=== PATIENT | female | born 1950 | race Hispanic/Latino ===

== ENCOUNTER 2020-11-24 08:11 | Inpatient (IN) | payer OTHER ==
--- NOTE | 2020-11-24 08:45 | RAD REPORT ---
EXAM DESCRIPTION: CT - Head Brain Wo Cont - 11/24/2020 8:36 am CLINICAL HISTORY: unresponsive Headache, drowsiness COMPARISON: No comparisons TECHNIQUE: All CT scans are performed using dose optimization technique as appropriate and may inclu de automated exposure control or mA/KV adjustment according to patient size. FINDINGS: No intracranial hemorrhage, hydrocephalus or extra-axial fluid collection.No areas of brai n edema or evidence of midline shift. The paranasal sinuses and mastoids are clear. The calvarium is intact. IMPRESSION: No acute intracranial abnormality.
[2020-11-24 08:46] LABS: Urine Blood Negative (Negative); Urine Glucose Negative (Negative); Urine Protein Negative (Negative); Urine pH 7.5 (5.0-7.0)
[2020-11-24 08:48] LABS: Protime INR 1.13
[2020-11-24 09:02] LABS: ALT/SGPT 37 U/L (12-78); AST/SGOT 41 U/L (15-37); Albumin 2.4 g/dL (3.4-5.0); Alkaline Phosphatase 231 U/L (45-117); BUN Blood Urea Nitrogen 16 mg/dL (7-18); Bicarbonate 22 mmol/L (21-32); Bilirubin Direct 0.7 mg/dL (0-0.2); Bilirubin Total 1.6 mg/dL (0.2-1.0); Glucose Level 159 mg/dL (74-106); Magnesium 1.9 mg/dL (1.8-2.4); NT PRO-BNP 581 pg/mL (<125); Potassium 5.1 mmol/L (3.5-5.1); Protein, Total 5.5 g/dL (6.4-8.2); Sodium Level 143 mmol/L (136-145); Troponin (Emerg Dept Use Only) < 0.02 ng/mL (0.0-0.045)
[2020-11-24 09:15] LABS: Arterial Blood Carboxyhemoglob 1.5 % (0-1.5); Blood Gas Oxyhemoglobin 98.1 % (94-97)
[2020-11-24] MEDS ORDERED: NA CHLORIDE 0.9% 1,000 ML ONE (09:15)
[2020-11-24 09:24] LABS: Absolute Lymphocytes (CBC) 0.7 K/uL (0.7-4.9); Basophils % 0.8 % (0-1.3); Hematocrit 28.3 % (36.0-45.0); Lymphocytes % 18.6 % (15.3-44.8); RBC Red Blood Cell Count 2.69 M/uL (3.86-4.86)
[2020-11-24 09:59] LABS: Blood Morphology Comment NOT SEEN (NOT SEEN); Platelet Estimate DECR; White Blood Cell Scan OK (OK)
[2020-11-24] MEDS ORDERED: CEFTRIAXONE/SWI 1gm 1 GM/10 ML SYR ONE (10:12)
[2020-11-24] MEDS ORDERED: LACTULOSE 20 GM/30 ML UCUP ONE ×2 (10:13→16:30)
[2020-11-24 10:15] LABS: Barbiturates NEGATIVE (NEGATIVE); Benzodiazepines NEGATIVE (NEGATIVE); Cocaine NEGATIVE (NEGATIVE); METHAMPHETAM NEGATIVE (NEGATIVE); Methadone NEGATIVE (NEGATIVE); Opiates NEGATIVE (NEGATIVE); Phencyclidine NEGATIVE (NEGATIVE); THC Cannibis NEGATIVE (NEGATIVE)
--- NOTE | 2020-11-24 10:20 | ER ---
Nurse's Notes [facility] Name: Opal Strong Age: 70 yrs Sex: Female : 1950 Arrival Date: 11/24/2020 Time: 08:13 Bed 6 Private MD: Diagnosis: Encephalopathy, unspecified-hepatic Presentation: 11/24 08:14 Chief complaint: EMS states: Found unresponsive by family, last known normal was hb yesterday afternoon. Hx of cirrhosis, HTN, CHF. 18g LAC, 100% on NRB. Coronavirus screen: At this time, the client does not indicate any symptoms associated with coronavirus-19. Ebola Screen: No symptoms or risks identified at this time. Initial Sepsis Screen: Does the patient meet any 2 criteria? Altered Mental Status. No. Patient's initial sepsis screen is negative. Does the patient have a suspected source of infection? No. Patient's initial sepsis screen is negative. Risk Assessment: Do you want to hurt yourself or someone else? Patient reports no desire to harm self or others. Onset of symptoms was November 24, 2020. 08:14 Acuity: AMBER 1 08:14 Method Of Arrival: EMS: [facility] Triage Assessment: 08:15 General: Appears distressed, Behavior is unresponsive. Pain: Unable to use pain scale. hb FLACC scale score is 0 out of 10. EENT: No signs and/or symptoms were reported regarding the EENT system. Neuro: Level of Consciousness is unresponsive, Oriented to none. Cardiovascular: Patient's skin is warm and dry. Rhythm is regular. Respiratory: Respiratory effort is labored, Respiratory pattern is hypoventilation snoring. GI: Abdomen is obese. : No deficits noted. No signs and/or symptoms were reported regarding the genitourinary system. Derm: Skin is pink, warm \\T\\ dry. Musculoskeletal: No signs and/or symptoms reported regarding the musculoskeletal system. Historical: - Allergies: 08:17 No Known Allergies; hb - PMHx: 08:17 Hypertension; CHF; Diabetes - NIDDM; Cirrhosis; Blind - Right Eye; hb - PSHx: 08:17 Hernia repair; Tumor - abdomen; hb - Immunization history:: Adult Immunizations up to date. - Social history:: Smoking status: Patient denies any tobacco usage or history of. . - Family history:: not pertinent. Screenin:51 Abuse screen: Denies threats or abuse. Denies injuries from another. Nutritional hb screening: No deficits noted. Tuberculosis screening: No symptoms or risk factors identified. Fall Risk Total Chery Fall Scale indicates High Risk Score (45 or more points). Fall prevention measures have been instituted. Side Rails Up X 2 Frequent Obs/Assessments Occuring As available patient and family educated on Fall Prevention Program and Strategies. Assessment: 08:15 Reassessment: See triage assessment. hb 08:32 Reassessment: Pt to CT on CPAP with Colleen Johnson, and Rose TOPETE. hb 08:45 Reassessment: Returned from CT. Radiology at bedside for PCR. hb 09:45 Reassessment: Vital signs stable, on CPAP, responsive to pain only, Dr. Theresa goldman. hb Daughter at bedside. 10:15 Reassessment: Lactulose administered ID via enema bag. Pt in left side lying position. hb Daughter at bedside. 10:45 Reassessment: Pt on CPAP, vital signs stable. Daughter remains at bedside. Admission hb ordered, awaiting room assignment at this time. Reassessment:. 11:45 Reassessment: Patient appears in no apparent distress at this time. No changes from hb previously documented assessment. Patient and/or family updated on plan of care and expected duration. Pain level reassessed. 12:30 Reassessment: Patient appears in no apparent distress at this time. No changes from hb previously documented assessment. Patient and/or family updated on plan of care and expected duration. Pain level reassessed. 12:41 Reassessment: Pt returned from cT. Reassessment: Pt to CT. hb Vital Signs: 08:14 Pulse 59; Resp 10; Temp 98; Pulse Ox 100% on R/A; hb 08:58 BP 113 / 70; Pulse 60; Resp 10; Pulse Ox 100% on CPAP; hb 09:45 BP 112 / 60; Pulse 68; Resp 10; Pulse Ox 99% on CPAP; hb 10:45 BP 110 / 49; Pulse 69; Resp 9; Pulse Ox 100% on CPAP; hb 12:22 BP 125 / 60; Pulse 65; Resp 9; Pulse Ox 100% on CPAP; hb ED Course: 08:13 Patient arrived in ED. hb 08:14 Patient has correct armband on for positive identification. Side rails up X2. Cardiac hb monitor on. Pulse ox on. NIBP on. 08:15 Triage completed. hb 08:17 Arm band placed on. hb 08:24 Kip Cardenas MD is Attending Physician. ma2 08:28 Initial lab(s) drawn, by me, sent to lab. First set of blood cultures drawn Urine mh5 collected: Bauer catheter specimen, clear, EKG done, by ED staff, reviewed by Kip Cardenas MD. Maintain EMS IV. Dressing intact. Site clean \\T\\ dry. 08:36 CT Head Brain wo Cont In Process Unspecified. EDMS 08:46 Rose Lai, RN is Primary Nurse. hb 08:48 Urine Drug Screen Sent. mh5 08:48 Blood Culture Adult (2) Sent. mh5 08:48 UDS Sent. mh5 08:49 NT PRO-BNP Sent. mh5 08:49 Alcohol Level Sent. mh5 08:49 Liver (Hepatic) Function Sent. mh5 08:49 Magnesium Sent. mh5 08:49 Basic Metabolic Panel Sent. mh5 08:49 CBC with Automated Diff Sent. mh5 08:49 AMMONIA Sent. mh5 08:49 Basic Metabolic Panel Sent. mh5 08:50 CBC with Diff Sent. mh5 08:50 LFT's Sent. mh5 08:50 Magnesium Sent. mh5 08:50 NT PRO-BNP Sent. mh5 08:50 PT-INR Sent. mh5 08:50 Troponin (emerg Dept Use Only) Sent. mh5 08:53 Warm blanket given. mh5 09:00 Lab(s) recollected, Second set of blood cultures drawn by me. 5 10:20 Marquis Estrada MD is Hospitalizing Provider. ma2 11:00 COVID-19 : Document "Date of Symptom Onset" if Symptomatic. Sent. hb 11:[address] Veda Santana patient's GI called at [phone] message eb left with answering service. 11:31 Dr. Castellanos called back for Dr. Santana / He is the director [facility]. He advised that eb we call the [facility] and ask to be connected to Dr. Cervantes who is the central station operator director [employer] [facility]. 11:39 initiated a transfer with Karine from the [facility]. eb 11:40 CORONAVIRUS Sent. [facility] 11:53 Karine from the [facility] called to decline the patient in eb transfer/ None of their facilities have any ICU/ IMU beds at this time. 13:01 Abdomen In Process Unspecified. EDMS 14:30 No provider procedures requiring assistance completed. Patient admitted, IV remains in hb place. Administered Medications: 09:02 Drug: NS 0.9% 1000 ml Route: IV; Rate: 1 bolus; Site: left antecubital; hb 09:55 Follow up: Response: No adverse reaction; IV Status: Completed infusion; IV Intake: hb 1000ml 10:11 Drug: Lactulose 30 grams Volume: 45 ml; Route: PO; hb 11:00 Follow up: Response: No adverse reaction hb 10:11 Drug: Rocephin (cefTRIAXone) 1 grams Route: IV; Rate: calculated rate; Site: left hb antecubital; 10:30 Follow up: Response: No adverse reaction; IV Status: Completed infusion; IV Intake: 10mlhb Intake: 09:55 IV: 1000ml; Total: 1000ml. hb 10:30 IV: 10ml; Total: 1010ml. hb Outcome: 10:20 Decision to Hospitalize by Provider. ma2 14:30 Admitted to ER Hold. Please see [facility] for further documentation. hb 14:30 critical 14:30 Instructed on the need for admit. 11/25 10:02 Patient left the ED. sv Signatures: Dispatcher [employer] Sarika Serra RN RN Rose Lai RN RN Antonette Dimas [facility] Kip Cardenas MD MD [facility] Katharine Benton Corrections: (The following items were deleted from the chart) 11/24 10:50 09:45 Reassessment: Vital signs stale, on CPAP. Daughter at bedside. hb hb
--- NOTE | 2020-11-24 10:20 | EDPHYS ---
Physician Documentation [facility] Name: Opal Strong Age: 70 yrs Sex: Female : 1950 Arrival Date: 11/24/2020 Time: 08:13 Bed 6 Private MD: ED Physician Kip Cardenas HPI: 11/24 10:15 This 70 yrs old Female presents to ER via EMS with complaints of Unresponsive. ma2 10:15 This 70 yrs old Female presents to ER via EMS with complaints of altered ma2 mental state . 10:15 The patient presents with confusion, decreased mental status, decreased responsiveness. ma2 Onset: The symptoms/episode began/occurred gradually, 1 day(s) ago. Associated signs and symptoms: Pertinent negatives: ataxia, chest pain, combativeness, confusion. The patient has experienced similar episodes in the past. Historical: - Allergies: 08:17 No Known Allergies; hb - PMHx: 08:17 Hypertension; CHF; Diabetes - NIDDM; Cirrhosis; Blind - Right Eye; hb - PSHx: 08:17 Hernia repair; Tumor - abdomen; hb - Immunization history:: Adult Immunizations up to date. - Social history:: Smoking status: Patient denies any tobacco usage or history of. . - Family history:: not pertinent. ROS: 10:15 Unable to obtain ROS due to altered mental status. ma2 10:20 Eyes: Negative for injury, pain, redness, and discharge. ma2 Exam: 10:15 Head/Face: Normocephalic, atraumatic. Eyes: Pupils equal round and reactive to light, ma2 extra-ocular motions intact. Lids and lashes normal. Conjunctiva and sclera are non-icteric and not injected. Cornea within normal limits. Periorbital areas with no swelling, redness, or edema. ENT: Nares patent. No nasal discharge, no septal abnormalities noted. Tympanic membranes are normal and external auditory canals are clear. Oropharynx with no redness, swelling, or masses, exudates, or evidence of obstruction, uvula midline. Mucous membranes moist. Neck: Trachea midline, no thyromegaly or masses palpated, and no cervical lymphadenopathy. Supple, full range of motion without nuchal rigidity, or vertebral point tenderness. No Meningismus. Chest/axilla: Normal chest wall appearance and motion. Nontender with no deformity. No lesions are appreciated. Cardiovascular: Regular rate and rhythm with a normal S1 and S2. No gallops, murmurs, or rubs. Normal PMI, no JVD. No pulse deficits. Respiratory: Lungs have equal breath sounds bilaterally, clear to auscultation and percussion. No rales, rhonchi or wheezes noted. No increased work of breathing, no retractions or nasal flaring. Abdomen/GI: Soft, non-tender, with normal bowel sounds. No distension or tympany. No guarding or rebound. No evidence of tenderness throughout. Skin: Warm, dry with normal turgor. Normal color with no rashes, no lesions, and no evidence of cellulitis. MS/ Extremity: Pulses equal, no cyanosis. Neurovascular intact. Full, normal range of motion. Neuro: samnolent only arosable to verbal stimuli, GCS 11,Cranial nerves II-XII grossly intact. moving all extremities. Vital Signs: 08:14 Pulse 59; Resp 10; Temp 98; Pulse Ox 100% on R/A; hb 08:58 BP 113 / 70; Pulse 60; Resp 10; Pulse Ox 100% on CPAP; hb 09:45 BP 112 / 60; Pulse 68; Resp 10; Pulse Ox 99% on CPAP; hb 10:45 BP 110 / 49; Pulse 69; Resp 9; Pulse Ox 100% on CPAP; hb 12:22 BP 125 / 60; Pulse 65; Resp 9; Pulse Ox 100% on CPAP; hb MDM: 10:15 Patient medically screened. ma2 10:15 Differential Diagnosis: alcohol intoxication, sepsis, UTI, volume depletion. Data ma2 reviewed: vital signs, nurses notes. Counseling: I had a detailed discussion with the patient and/or guardian regarding: the historical points, exam findings, and any diagnostic results supporting the discharge/admit diagnosis, the presence of at least one elevated blood pressure reading (>120/80) during this emergency department visit, the need for outpatient follow up. Response to treatment: the patient's symptoms have markedly improved after treatment. 11/24 08:21 Order name: Basic Metabolic Panel eb 11/24 08:21 Order name: CBC with Diff eb 11/24 08:21 Order name: LFT's eb 11/24 08:21 Order name: Magnesium eb 11/24 08:21 Order name: NT PRO-BNP eb 11/24 08:21 Order name: PT-INR; Complete Time: 09:02 eb 11/24 08:21 Order name: Troponin (emerg Dept Use Only); Complete Time: 09:27 eb 11/24 08:21 Order name: AMMONIA; Complete Time: 09:02 eb 11/24 08:21 Order name: Basic Metabolic Panel; Complete Time: 09:27 EDMS 11/24 08:21 Order name: CBC with Automated Diff; Complete Time: 10:08 EDMS 11/24 08:21 Order name: Liver (Hepatic) Function; Complete Time: 09:27 EDMS 11/24 08:21 Order name: Magnesium; Complete Time: 09:27 EDMS 11/24 08:21 Order name: NT PRO-BNP; Complete Time: 09:27 EDMS 11/24 08:25 Order name: UDS nh2 11/24 08:25 Order name: Alcohol Level; Complete Time: 09:02 nh2 11/24 08:25 Order name: Blood Culture Adult (2) [facility] 11/24 08:25 Order name: Urine Drug Screen EDMS 11/24 08:46 Order name: Urine Dipstick-Ancillary EDMS 11/24 09:15 Order name: ABG Arterial Blood Gas; Complete Time: 09:27 EDMS 11/24 09:59 Order name: CBC Smear Scan; Complete Time: 10:08 EDMS 11/24 10:49 Order name: COVID-19 : Document "Date of Symptom Onset" if Symptomatic. 11/24 11:31 Order name: CORONAVIRUS EDMS 11/24 12:25 Order name: SARS-COV-2 RT PCR EDMS 11/24 16:27 Order name: Glucose, Ancillary Testing EDMS 11/24 21:53 Order name: Glucose, Ancillary Testing EDMS 11/25 06:26 Order name: Ammonia EDMS 11/25 06:28 Order name: Protime (+INR) EDMS 11/25 06:35 Order name: Comprehensive Metabolic Panel EDMS 11/25 06:35 Order name: Magnesium EDMS 11/25 06:42 Order name: CBC with Automated Diff EDMS 11/24 08:21 Order name: XRAY Chest (1 view) 11/24 08:21 Order name: EKG; Complete Time: 08:22 11/24 08:21 Order name: Cardiac monitoring; Complete Time: 08:50 eb 11/24 08:21 Order name: EKG - Nurse/Tech; Complete Time: 08:50 eb 11/24 08:21 Order name: IV Saline Lock; Complete Time: 08:50 eb 11/24 08:21 Order name: Labs collected and sent; Complete Time: 08:51 eb 11/24 08:21 Order name: O2 Per Protocol; Complete Time: 08:51 eb 11/24 08:21 Order name: O2 Sat Monitoring; Complete Time: 08:54 eb 11/24 08:21 Order name: CT Head Brain wo Cont; Complete Time: 09:02 eb 11/24 08:25 Order name: Urine Dipstick-Ancillary (obtain specimen); Complete Time: 08:46 ma2 11/24 08:53 Order name: Labs - recollect needed: recollect the purple top/ hemolyzed; Complete eb Time: 09:02 11/24 10:54 Order name: RAD [facility] 11/24 12:08 Order name: Abdomen EDTN 11/25 08:04 Order name: Glucose, Ancillary Testing EDTN 11/25 08:38 Order name: RAD [facility] 11/25 08:39 Order name: EDTN Administered Medications: 09:02 Drug: NS 0.9% 1000 ml Route: IV; Rate: 1 bolus; Site: left antecubital; hb 09:55 Follow up: Response: No adverse reaction; IV Status: Completed infusion; IV Intake: hb 1000ml 10:11 Drug: Lactulose 30 grams Volume: 45 ml; Route: PO; hb 11:00 Follow up: Response: No adverse reaction hb 10:11 Drug: Rocephin (cefTRIAXone) 1 grams Route: IV; Rate: calculated rate; Site: left hb antecubital; 10:30 Follow up: Response: No adverse reaction; IV Status: Completed infusion; IV Intake: 10mlhb Disposition: 11/24/20 10:20 Hospitalization ordered by Marquis Estrada for Inpatient Admission. Preliminary diagnosis is Encephalopathy, unspecified - hepatic . - Bed requested for Telemetry/MedSurg (Inpatient). - Status is Inpatient Admission. sv - Condition is Stable. - Problem is new. - Symptoms are unchanged. Signatures: Dispatcher [facility] Sarika Robertson RN RN Rose Lai RN RN Kip Cardenas MD MD nh2 Katharine Benton Corrections: (The following items were deleted from the chart) 14:47 10:20 Hospitalization Ordered by Marquis Estrada MD for Inpatient Admission. Preliminary eb diagnosis is Encephalopathy, unspecified - hepatic . Bed requested for Telemetry/MedSurg (Inpatient). Status is Inpatient Admission. Condition is Stable. Problem is new. Symptoms are unchanged. [facility] 11/25 08:09 11/24 14:47 11/24/2020 10:20 Hospitalization Ordered by Marquis Estrada MD for Inpatient sv Admission. Preliminary diagnosis is Encephalopathy, unspecified - hepatic . Bed requested for [facility] ER HOLD. Status is Inpatient Admission. Condition is Stable. Problem is new. Symptoms are unchanged. eb 11/25 10:02 08:09 11/24/2020 10:20 Hospitalization Ordered by Marquis Estrada MD for Inpatient sv Admission. Preliminary diagnosis is Encephalopathy, unspecified - hepatic . Bed requested for Telemetry/MedSurg (Inpatient). Status is Inpatient Admission. Condition is Stable. Problem is new. Symptoms are unchanged. sv
--- NOTE | 2020-11-24 10:54 | RAD REPORT ---
EXAM DESCRIPTION: RAD - Chest Single View - 11/24/2020 10:12 am CLINICAL HISTORY: unresponssive Chest pain. COMPARISON: No comparisons FINDINGS: Portable technique limits examination quality. Mild interstitial pulmonary edema seen. The heart is moderately enlarged in size. Degenerative change s present both shoulders. IMPRESSION: Mild CHF.
--- NOTE | 2020-11-24 13:14 | RAD REPORT ---
EXAM DESCRIPTION: CT - Abdomen Pelvis Wo Contrast - 11/24/2020 1:01 pm CLINICAL HISTORY: Abdominal pain. r/o obstruction, cirrhosis, h/o TIPS, AMS COMPARISON: No comparisons TECHNIQUE: CT imaging of the abdomen and pelvis was performed without contrast. Solid organ, bowel a nd vascular assessment is limited due to lack of IV and oral contrast. All CT scans are performed using dose optimization technique as appropriate and may include automated exposure control or mA/KV adjustment according to patient size. FINDINGS: The lower lung shafer are clear. The liver is small in size and nodular in contour compatible with liver cirrhosis. A TIPS shunt is in place.The spleen is mildly prominent. A gallstone is present in the gallbladder. Pancreas, adrenal g lands and kidneys are within normal limits. No bowel obstruction, free air, free fluid or abscess. Prominent stool is present throughout the colo n. The appendix is not identified as a discrete structure, however, no secondary findings of appendic itis are identified. Mild lower lumbar spondylosis. IMPRESSION: Liver cirrhosis pattern is seen. No bowel obstruction or ascites. Cholelithiasis. A limited non-contrast examination was performed as detailed.
--- NOTE | 2020-11-24 13:23 | P.HP ---
Certification for Inpatient Patient admitted to: Inpatient With expected LOS: >2 Midnights Practitioner: I am a practitioner with admitting privileges, knowledge of patient current condition, hospital course, and medical plan of care. Services: Services provided to patient in accordance with Admission requirements found in Title 42 Section 412.3 of the Code of Federal Regulations Patient History Date of Service: 11/24/20 Reason for admission: Acute hepatic encephalopathy History of Present Illness: 70yo F, PMH: cirrhosis (CHRISTENSEN), NIDDM2, CHF (unknown type), HTN, Congenital R eye blindness Brought to ED due to lethargy / minimal responsiveness. HPI obtained from the daughter at bedside. She states the patient was complaining of taking her electrolytes as prescribed due to feeling like it is stuck in her throat and not liking the taste. Approximately 2 weeks ago, her forex trader to decrease the dose from 4 times a day to twice a day. After that, the patient seemed to be more tired and more confused, but then improved. Daughter noticed yesterday she began to feel more tired and not as alert. Patient did not have her typical night bowel movement, and this morning she was very difficult to arouse. In the ED, patient appeared obtunded, summoned blinking her eyes, found to have an elevated ammonia level of 280, vitals were rather stable and within normal limits. Labwork notable for anemia of 9.6, thrombocytopenia of 78, mild hyperchloremia, creatinine of 1.21, mild hyperbilirubinemia, BNP: 581. Negative CT head, mild CHF pattern on CXR. In the ED COVID for admission. Upon my arrival, the patient's daughter requested transfer to [facility] with the patient's forex trader has privileges, and her food service sales representatives. Unfortunately [facility] was at capacity. Allergies No Known Allergies Allergy (Unverified 11/24/20 14:24) - Past Medical/Surgical History Diabetic: Yes -: luz-ykeoeky-zbxdfkohl diabetes mellitus type 2 -: CHRISTENSEN cirrhosis -: CHF, unknown type -: Hypertension -: Congenital right eye blindness -: Hysterectomy -: Hernia repair - Family History Family History: Reviewed- Non-Contributory (daughter unable to provider further history) - Social History Smoking Status: Never smoker Alcohol use: No Place of Residence: Home Review of Systems is unable to be obtained Physical Examination - Studies Laboratory Data (last 24 hrs) 11/24/20 09:00: WBC 4.00 L, Hgb 9.6 L, Hct 28.3 L, Plt Count 78 L 11/24/20 08:29: PT 13.0 H, INR 1.13 11/24/20 08:29: Sodium 143, Potassium 5.1, BUN 16, Creatinine 1.21, Glucose 159 H, Magnesium 1.9, Total Bilirubin 1.6 H, AST 41 H, ALT 37, Alkaline Phosphatase 231 H Assessment and Plan - Advance Directives Does patient have a Living Will: No Does patient have a Durable POA for Healthcare: No Physician Review Additional Text: Physical Exam Gen: unresponsive, on CPAP HEENT: Normal conjunctiva, sclerae anicteric, L PERRL CV: RRR, no murmur Pulm: diminished at bases bilaterally, on CPAP Abd: distended, +BS Ext: trace b/l edema, no rash/lesions Skiin: varicose veins on chest Neuro: unresponsive Problem List Acute Encephalopathy suspect hepatic encephalopathy Cirrhosis, CHRISTENSEN; s/p TIPS procedure Hyperammonemia DM 2, [id number]-[id number] Hypertension CHF, unknown type. General right eye blindness Anemia -labs and vitals not consistent with infection at this time , pt does not appear septic -elevated ammonia level, recent decrease in lactulose and progressively worsening fatigue/lethargy over last 24hrs more consistent with hepatic encephalopathy -pt did not have her daily BM last night -lactulose enemas ordered, transition to PO when more awake/alert -f/u ammonia levels, repeat CMP -UA ordered, urine tox -check CT abd/pelvis, r/o other pathology, eval liver -obtain home medications and restart as appropriate -daughter denies any h/o bleeding -monitor in ICU over next 24hrs at least VTE: lovenox Code: full Dispo: anticipate dc home in 2-3 days Time Spent Managing Pts Care (In Minutes): 60
[2020-11-24 14:29] VITALS: BMI 28.7
[2020-11-24] MEDS: LACTULOSE 20 GM/30 ML UCUP PR SCH (15:00)
[2020-11-24] MEDS: ENOXAPARIN 40 MG/0.4 ML SQ SCH (15:00)
[2020-11-24] MEDS ORDERED: PNEUMOCOCCAL VACCINE 0.5 ML IMVAC ONE ×2 (16:00→16:30)
[2020-11-24] MEDS ORDERED: ENOXAPARIN 40 MG/0.4 ML SQ ONE (16:28)
[2020-11-24] MEDS: INSULIN -REGULAR HUMAN 50 UNIT/0.5 ML ML SQ SCH ×2 (16:30→21:00)
[2020-11-24] MEDS: ONDANSETRON 4 MG/2 ML VIAL IV PRN (21:44)
[2020-11-24] MEDS ORDERED: ONDANSETRON 4 MG/2 ML VIAL ONE (21:58)
[2020-11-25] MEDS: LACTULOSE 20 GM/30 ML UCUP PR SCH (01:00)
[2020-11-25] MEDS ORDERED: ONDANSETRON 4 MG/2 ML VIAL ONE ×2 (03:45→08:16)
[2020-11-25] MEDS ORDERED: MORPHINE 2 MG/ML SYR IV ONE (04:20)
[2020-11-25] MEDS ORDERED: MORPHINE 2 MG/ML SYR ONE (04:43)
[2020-11-25] MEDS: VANCOMYCIN 1.25 GM in NA CHLORIDE 0.9% 250 ML IVPB SCH (06:00)
[2020-11-25 06:12] LABS: Absolute Lymphocytes (CBC) 0.9 K/uL (0.7-4.9); Basophils % 0.6 % (0-1.3); Hematocrit 29.6 % (36.0-45.0); Lymphocytes % 16.1 % (15.3-44.8); MPV 8.9 fL (7.6-11.3); RBC Red Blood Cell Count 2.82 M/uL (3.86-4.86)
[2020-11-25 06:20] LABS: Protime INR 1.24
[2020-11-25] MEDS ORDERED: NA CHLORIDE 0.9% 250 ML ONE (06:20)
[2020-11-25] MEDS ORDERED: VANCOMYCIN 1 GM/VIAL ONE (06:20)
[2020-11-25 06:35] LABS: Albumin 2.3 g/dL (3.4-5.0); Bilirubin Total 2.6 mg/dL (0.2-1.0); Magnesium 1.7 mg/dL (1.8-2.4); Potassium 4.3 mmol/L (3.5-5.1); Protein, Total 5.5 g/dL (6.4-8.2)
[2020-11-25] MEDS ORDERED: LACTULOSE 20 GM/30 ML UCUP PR SCH (07:00)
[2020-11-25] MEDS: INSULIN -REGULAR HUMAN 50 UNIT/0.5 ML ML SQ SCH ×4 (07:30→20:46)
[2020-11-25] MEDS: ENOXAPARIN 40 MG/0.4 ML SQ SCH (08:05)
[2020-11-25] MEDS: LACTULOSE 20 GM/30 ML UCUP PO SCH ×4 (08:05→20:46)
[2020-11-25] MEDS: ONDANSETRON 4 MG/2 ML VIAL IV PRN ×2 (08:05→16:17)
[2020-11-25] MEDS: CEFEPIME/SWI 2gm 2 GM/20 ML SYR IV SCH (08:06)
[2020-11-25] MEDS ORDERED: MAGNESIUM SULFATE 1 gm IVPB 1 GM/100 ML BAG IV ONE ×2 (08:11→08:43)
[2020-11-25] MEDS ORDERED: ENOXAPARIN 40 MG/0.4 ML SQ ONE (08:13)
[2020-11-25] MEDS ORDERED: CEFEPIME/SWI 1gm 10 ML ONE (08:13)
[2020-11-25] MEDS ORDERED: LACTULOSE 20 GM/30 ML UCUP ONE (08:16)
--- NOTE | 2020-11-25 08:38 | RAD REPORT ---
EXAM DESCRIPTION: RAD - Chest Single View - 11/25/2020 6:52 am CLINICAL HISTORY: hypoxia, h/o CHF Chest pain. COMPARISON: Chest Single View dated 11/24/2020 FINDINGS: Portable technique limits examination quality. Mild interstitial pulmonary edema. The heart is moderately enlarged in size. No displaced fractures. IMPRESSION: Mild CHF, stable.
--- NOTE | 2020-11-25 08:39 | RAD REPORT ---
EXAM DESCRIPTION: US - Liver Only - 11/25/2020 7:14 am CLINICAL HISTORY: eval liver, cholelithiasis COMPARISON: No comparisons FINDINGS: Heterogenous and cirrhotic appearance to the liver parenchyma is seen.TIPS shunt is noted to be patent.Several stones are present in the gallbladder.Common bile duct is mildly prominent measu ring 7 mm. IMPRESSION: Cirrhotic appearance to the liver parenchyma is seen. Patent TIPS shunt is noted. Cholelithiasis.
[2020-11-25] MEDS ORDERED: CEFTRIAXONE/SWI 1gm 1 GM/10 ML SYR IV SCH (09:00)
[2020-11-25] MEDS ORDERED: CEFEPIME/SWI 2gm 2 GM/20 ML SYR IV SCH (09:00)
[2020-11-25] MEDS ORDERED: CEFEPIME 2 GM VIAL IV SCH (09:00)
--- NOTE | 2020-11-25 09:20 | EKG ---
Test Date: 2020-11-24 Test Time: 08:11:39 [employer] Driver: HB MEASUREMENT RESULTS: Intervals: Rate: 72 SC: 134 QRSD: 70 QT: 416 QTc: 455 [place]: P: 52 SC: 134 QRS: 12 T: 7 INTERPRETIVE STATEMENTS: Normal sinus rhythm Low voltage QRS Borderline ECG No previous ECG available for comparison Electronically Signed On 11-25-20 09:17:20 CDT by Sudhakar Burnham
[2020-11-25] MEDS ORDERED: METOCLOPRAMIDE 10 MG/2mL INJ IV PRN (09:28)
[2020-11-25] MEDS ORDERED: METOCLOPRAMIDE 10 MG/2mL INJ ONE (09:55)
[2020-11-25] MEDS ORDERED: PRAMIPEXOLE 0.25 MG TAB PO ONE (10:39)
--- NOTE | 2020-11-25 12:48 | P.PN ---
Subjective Date of Service: 11/25/20 Chief Complaint: Acute hepatic encephalopathy Subjective: Improving (ammonia improved. patient more alert /oriented but still with some confusion. denies any recent illness. reports diffuse abdominal cramping pain, mild nausea) Review of Systems 10-point ROS is otherwise unremarkable Physical Examination - Vital Signs Temperature: 99.3 F Blood Pressure: 149/60 Pulse: 95 Respirations: 18 Pulse Ox (%): 97 Assessment & Plan Physician Review Additional Text: Physical Exam Gen: appears uncomfortable, AAOx2 HEENT: Normal conjunctiva, mild scleral icterus CV: RRR, no murmur Pulm: diminished at bases bilaterally Abd: soft, mild distention, diffuse abdominal discomfort Ext: trace b/l edema, no rash/lesions Skiin: varicose veins on chest Problem List Acute Encephalopathy suspect hepatic encephalopathy Cirrhosis, CHRISTENSEN; s/p TIPS procedure Hyperammonemia DM 2, [id number] Hypertension CHF, unknown type. General right eye blindness Anemia -blood culture growing GPC in aerobic bottles, on cefepime and vancomycin, patient denies any recent illness/fever -elevated ammonia level, recent decrease in lactulose and progressively worsening fatigue/lethargy over last 24hrs more consistent with hepatic encephalopathy -lactulose enemas given in ED overnight. pt had small BM -more awake/alert, ammonia much improved, transition to PO lactulose - pt has nausea from taste -UA and urine tox clean -CT abd/pelvis without acute findings -restart home meds -daughter denies any h/o bleeding -transfer to floor VTE: lovenox Code: full Dispo: anticipate dc home 1-2 days, f/u blood culture, transfer to floor Time Spent Managing Pts Care (In Minutes): 35
[2020-11-25] MEDS: ACETAMINOPHEN 500 MG TAB PO PRN (17:34)
[2020-11-25] MEDS: SPIRONOLACTONE 25 MG TABLET PO SCH (20:45)
[2020-11-25] MEDS: PRAMIPEXOLE 0.25 MG TAB PO SCH (20:45)
[2020-11-25] MEDS: PANTOPRAZOLE 40MG TABLET PO SCH (20:46)
[2020-11-25] MEDS ORDERED: HOME MED 1 EA UNK (Omeprazole [Omeprazole] 20 MG Capsule.Dr) PO SCH (21:00)
[2020-11-26] MEDS: ACETAMINOPHEN 500 MG TAB PO PRN (03:51)
[2020-11-26 05:46] LABS: Absolute Lymphocytes (CBC) 1.1 K/uL (0.7-4.9); Basophils % 0.5 % (0-1.3); Hematocrit 29.1 % (36.0-45.0); Lymphocytes % 26.3 % (15.3-44.8); MPV 8.7 fL (7.6-11.3); RBC Red Blood Cell Count 2.73 M/uL (3.86-4.86)
[2020-11-26] MEDS: VANCOMYCIN 1.25 GM in NA CHLORIDE 0.9% 250 ML IVPB SCH (06:00)
[2020-11-26 06:12] LABS: Albumin 2.1 g/dL (3.4-5.0); Bilirubin Total 2.3 mg/dL (0.2-1.0); Magnesium 1.7 mg/dL (1.8-2.4); Potassium 3.5 mmol/L (3.5-5.1); Protein, Total 5.3 g/dL (6.4-8.2)
[2020-11-26] MEDS ORDERED: VANCOMYCIN 1 GM/VIAL ONE (06:18)
[2020-11-26] MEDS ORDERED: NA CHLORIDE 0.9% 500 ML ONE (06:18)
[2020-11-26] MEDS: INSULIN -REGULAR HUMAN 50 UNIT/0.5 ML ML SQ SCH ×4 (07:30→21:00)
[2020-11-26] MEDS: CEFEPIME/SWI 2gm 2 GM/20 ML SYR IV SCH (08:13)
[2020-11-26] MEDS: LACTULOSE 20 GM/30 ML UCUP PO SCH ×4 (08:14→20:38)
[2020-11-26] MEDS: SPIRONOLACTONE 25 MG TABLET PO SCH ×2 (08:15→20:37)
[2020-11-26] MEDS: PANTOPRAZOLE 40MG TABLET PO SCH ×2 (08:15→20:37)
[2020-11-26] MEDS: ENOXAPARIN 40 MG/0.4 ML SQ SCH (08:20)
[2020-11-26] MEDS ORDERED: MAGNESIUM SULFATE 1 gm IVPB 1 GM/100 ML BAG IV ONE (09:00)
[2020-11-26] MEDS ORDERED: POTASSIUM CL SA 10 MEQ TAB PO ONE (09:00)
--- NOTE | 2020-11-26 16:35 | P.PN ---
Subjective Date of Service: 11/26/20 Chief Complaint: Acute hepatic encephalopathy Patient is more awake and alert today and back to baseline. 2 blood culture bottles growing coagulase negative Staph. Physical Examination - Vital Signs Temperature: 98.4 F Blood Pressure: 157/67 Pulse: 80 Respirations: 19 Pulse Ox (%): 99 - Physical Exam General: Alert, In no apparent distress, Obese HEENT: Mucous membr. moist/pink, Sclerae nonicteric Neck: JVD not distended Respiratory: Clear to auscultation bilaterally, Normal air movement Cardiovascular: No edema, Regular rate/rhythm, Normal S1 S2 Gastrointestinal: Normal bowel sounds, Soft and benign, Non-distended, No ascites Musculoskeletal: No swelling, No tenderness Integumentary: No rashes Neurological: Normal strength at 5/5 x4 extr Assessment And Plan Physician Review Additional Text: Problem List Acute Encephalopathy suspect hepatic encephalopathy Cirrhosis, CHRISTENSEN; s/p TIPS procedure Hyperammonemia DM 2, [id number] Hypertension CHF, unknown type. General right eye blindness Anemia -blood culture growing coagulase negative Staph. This is likely a skin contaminant. She is on cefepime and vancomycin. Repeat blood cultures. -altered mental status likely secondary to hepatic encephalopathy. Patient had her lactulose dose changed due to bloating. She was constipated for 1-2 days. -continue lactulose. Resume Rifaximin. -UA and urine tox clean -CT abd/pelvis without acute findings -continue home meds VTE: lovenox Code: full Dispo: anticipate dc home 1-2 days, f/u blood culture.
[2020-11-26] MEDS: POLYETHYL GLY 3350 17 GM/DOSE PO SCH (20:36)
[2020-11-26] MEDS: PRAMIPEXOLE 0.25 MG TAB PO SCH (20:37)
[2020-11-26] MEDS: RIFAXIMIN 550 MG PO SCH (20:38)
[2020-11-27 05:57] LABS: Hematocrit 26.6 % (36.0-45.0); RBC Red Blood Cell Count 2.52 M/uL (3.86-4.86)
[2020-11-27 05:58] LABS: Absolute Lymphocytes (CBC) 0.9 K/uL (0.7-4.9); Basophils % 0.5 % (0-1.3); Lymphocytes % 22.2 % (15.3-44.8); MPV 8.9 fL (7.6-11.3)
[2020-11-27 06:12] LABS: Magnesium 1.5 mg/dL (1.8-2.4); Phosphorus 2.6 mg/dL (2.5-4.9); Potassium 3.8 mmol/L (3.5-5.1)
[2020-11-27] MEDS: VANCOMYCIN 1.25 GM in NA CHLORIDE 0.9% 250 ML IVPB SCH (06:42)
[2020-11-27] MEDS: INSULIN -REGULAR HUMAN 50 UNIT/0.5 ML ML SQ SCH ×4 (07:30→21:07)
[2020-11-27 08:09] LABS: Anisocytosis SLIGHT; Blood Morphology Comment NOTED (NOT SEEN); Macrocytosis SLIGHT; Platelet Estimate DECR
[2020-11-27] MEDS: RIFAXIMIN 550 MG PO SCH ×2 (09:00→21:00)
[2020-11-27] MEDS ORDERED: POTASSIUM CL SA 10 MEQ TAB PO ONE (09:00)
[2020-11-27] MEDS ORDERED: Magnesium Sulfate 2gm IVPB 2 G/50 ML BAG IV ONE (09:00)
[2020-11-27] MEDS: SPIRONOLACTONE 25 MG TABLET PO SCH ×2 (09:00→21:06)
[2020-11-27] MEDS: ENOXAPARIN 40 MG/0.4 ML SQ SCH (09:00)
[2020-11-27] MEDS: CEFEPIME/SWI 2gm 2 GM/20 ML SYR IV SCH (09:34)
[2020-11-27] MEDS: LACTULOSE 20 GM/30 ML UCUP PO SCH ×2 (09:35→21:05)
[2020-11-27] MEDS: POLYETHYL GLY 3350 17 GM/DOSE PO SCH ×2 (09:35→21:06)
[2020-11-27] MEDS: PANTOPRAZOLE 40MG TABLET PO SCH ×2 (09:35→21:05)
[2020-11-27] MEDS: ACETAMINOPHEN 500 MG TAB PO PRN ×2 (10:43→18:31)
--- NOTE | 2020-11-27 15:37 | P.DS ---
Admission Date: 11/24/20 Discharge Date: 11/28/20 Disposition: ROUTINE DISCHARGE Discharge Condition: FAIR Reason for Admission: Acute hepatic encephalopathy - Problems (1) Hepatic encephalopathy Status: Acute (2) DM type 2 (diabetes mellitus, type 2) Status: Acute (3) Liver cirrhosis Status: Acute Brief History of Present Illness: 70-year-old woman with a history of liver cirrhosis, DM type 2, congenital right eye blindness was brought to the emergency department due to altered mental status. Patient is on lactulose which was recently decreased by her PCP due to increased bloating and MiraLax added. Her bowel movement frequency decreased. Her ammonia level was up to 280 in the emergency department. Patient diagnosed with hepatic encephalopathy and admitted for further management. Hospital Course: She was admitted to the medical floor and started for treatment for hepatic encephalopathy with the scheduled lactulose. Also continued rifaximine, Lasix and spironolactone. She had multiple bowel movements, her ammonia level decreased down to 67 and her mental status returned to baseline. Patient became awake and alert. Hepatic encephalopathy has resolved. Her initial blood cultures grew Staph capitis which is likely a skin contaminant. Repeat blood culture yielded no. With IV cefepime and vancomycin briefly. Patient reported generalized weakness. She walked with PT with stand-by assist. Overall patient has improved to baseline and deemed clinically stable for discharge. She is discharged with home health. Vital Signs/Physical Exam: Temp Pulse Resp BP Pulse Ox 98 F 70 18 121/56 L 95 11/27/20 12:00 11/27/20 12:00 11/27/20 12:00 11/27/20 12:00 11/27/20 12:00 General: Alert, In no apparent distress, Oriented x3 HEENT: Mucous membr. moist/pink Respiratory: Clear to auscultation bilaterally, Normal air movement Cardiovascular: No edema, Regular rate/rhythm, Normal S1 S2 Gastrointestinal: Normal bowel sounds, Soft and benign, Non-distended, No tenderness Musculoskeletal: No swelling Integumentary: No rashes, No erythema Neurological: Other (No focal motor deficit.) Laboratory Data at Discharge: WBC 4.10 K/uL (4.3-10.9) L 11/27/20 05:38 Hgb 9.1 g/dL (12.0-15.0) L 11/27/20 05:38 Hct 26.6 % (36.0-45.0) L 11/27/20 05:38 Plt Count 75 K/uL (152-406) L 11/27/20 05:38 PT 14.3 SECONDS (9.5-12.5) H 11/25/20 05:41 INR 1.24 11/25/20 05:41 Sodium 144 mmol/L (136-145) 11/27/20 05:38 Potassium 3.8 mmol/L (3.5-5.1) 11/27/20 05:38 BUN 8 mg/dL (7-18) 11/27/20 05:38 Creatinine 0.92 mg/dL (0.55-1.3) 11/27/20 05:38 Glucose 144 mg/dL (74-106) H 11/27/20 05:38 Phosphorus 2.6 mg/dL (2.5-4.9) 11/27/20 05:38 Magnesium Cancelled 11/27/20 15:00 Total Bilirubin 2.3 mg/dL (0.2-1.0) H 11/26/20 05:33 AST 51 U/L (15-37) H 11/26/20 05:33 ALT 33 U/L (12-78) 11/26/20 05:33 Alkaline Phosphatase 150 U/L (45-117) H 11/26/20 05:33 Home Medications: Aspirin [Aspirin EC] 81 mg PO BEDTIME 11/24/20 Atorvastatin Calcium [Lipitor*] 10 mg PO DAILY 11/24/20 Fluticasone [Flonase 50MCG Nasal Bowie*] 2 spray SRIKANTH BID 11/24/20 Glipizide [Glucotrol Xl] 2.5 mg PO BID 11/24/20 Lactulose 45 gm PO BID 11/24/20 Mv-Mn/Iron/Folic Acid/Herb 190 [Vitamin D3 Complete Caplet] 1 tab PO DAILY Omeprazole 20 mg PO BID 11/24/20 Polyethylene Glycol 3350 [Miralax] 17 g PO BID 11/24/20 Pramipexole [Mirapex*] 0.25 mg pe PO BEDTIME 11/24/20 Rifaximin [Xifaxan] 550 mg PO BID 11/24/20 Spironolactone 50 mg PO BID 11/24/20 Torsemide 10 mg PO BID 11/24/20 Physician Discharge Instructions: PROBLEM: Hepatic Encephalopathy GOAL: Clear understanding of disease process INSTRUCTIONS: Diet: diabetic Activity: As tolerated If you have any questions regarding your stay call [phone] If your symptoms worsen call [phone] or go to the ED Pneumonia Vaccine Indicated: Yes Pneumonia Vaccine Given: Yes Date Given: 11/24/20 Diet: ADA Activity: Ad misbah Followup: NONE,NONE [Primary Care Provider] - Time spent managing pt's care (in minutes): 36
--- NOTE | 2020-11-27 15:48 | P.PN ---
Subjective Date of Service: 11/27/20 Chief Complaint: Acute hepatic encephalopathy Patient is awake and alert and at baseline. She is generally weak and not able to transfer. Physical Examination - Vital Signs Temperature: 98 F Blood Pressure: 121/56 Pulse: 70 Respirations: 18 Pulse Ox (%): 95 - Physical Exam General: Alert, In no apparent distress, Oriented x3 Neck: JVD not distended Respiratory: Clear to auscultation bilaterally, Normal air movement Cardiovascular: No edema, Regular rate/rhythm, Normal S1 S2 Gastrointestinal: Normal bowel sounds, Soft and benign, Non-distended, No tenderness Musculoskeletal: No swelling Integumentary: No rashes Neurological: Other (Focal motor deficit.) Assessment And Plan - Current Problems (Diagnosis) (1) Hepatic encephalopathy Current Visit: Yes Status: Acute (2) DM type 2 (diabetes mellitus, type 2) Current Visit: Yes Status: Acute (3) Liver cirrhosis Current Visit: Yes Status: Acute Physician Review Additional Text: Problem List Acute Encephalopathy suspect hepatic encephalopathy Cirrhosis, CHRISTENSEN; s/p TIPS procedure Hyperammonemia DM 2, [id number] Hypertension CHF, unknown type. General right eye blindness Anemia -blood culture growing coagulase negative Staph. This is likely a skin contaminant. Repeat blood cultures: No growth. -altered mental status likely secondary to hepatic encephalopathy. Patient had her lactulose dose changed due to bloating. She was constipated for 1-2 days. -continue lactulose b.i.d. Added MiraLax continue Rifaximin. -UA and urine tox clean -CT abd/pelvis without acute findings -PT to evaluate. VTE: lovenox Code: full
[2020-11-27] MEDS ORDERED: MAGNESIUM SULFATE 1 gm IVPB 1 GM/100 ML BAG IV ONE (21:00)
[2020-11-27] MEDS: PRAMIPEXOLE 0.25 MG TAB PO SCH (21:05)
[2020-11-28] MEDS ORDERED: VANCOMYCIN 1.5 GM in NA CHLORIDE 0.9% 500 ML IVPB SCH (06:00)
[2020-11-28 06:22] LABS: Potassium 4.2 mmol/L (3.5-5.1)
[2020-11-28] MEDS: INSULIN -REGULAR HUMAN 50 UNIT/0.5 ML ML SQ SCH ×2 (07:30→11:30)
[2020-11-28] MEDS: LACTULOSE 20 GM/30 ML UCUP PO SCH (08:17)
[2020-11-28] MEDS: POLYETHYL GLY 3350 17 GM/DOSE PO SCH (08:18)
[2020-11-28] MEDS: SPIRONOLACTONE 25 MG TABLET PO SCH (08:18)
[2020-11-28] MEDS: PANTOPRAZOLE 40MG TABLET PO SCH (08:18)
[2020-11-28] MEDS: ENOXAPARIN 40 MG/0.4 ML SQ SCH (08:19)
[2020-11-28] MEDS: RIFAXIMIN 550 MG PO SCH (08:19)
[2020-11-28 09:40] VITALS: O2SAT 96
[2020-11-28 10:44] VITALS: TEMP 98.4
[2020-11-28 15:20] VITALS: BP 140/61
== END 2020-11-28 16:09 | disposition home or self-care (01) | DRG 442 ==
LOC: ER 08:11 → ERHOLD 13:19 → 2ND 11-25 09:35
PROVIDERS: ADMIT Hospitalist; ATTEND Internal Medicine
PROC: 5A09357 Assistance with Respiratory Ventilation, Less than 24 Consecutive Hours, Continuous Positive Airway Pressure (ICD-10-PCS; principal; 2020-11-24)
DX: K72.90 Hepatic failure, unspecified without coma (principal); E72.20 Disorder of urea cycle metabolism, unspecified; E11.9 Type 2 diabetes mellitus without complications; K74.60 Unspecified cirrhosis of liver; K75.81 Nonalcoholic steatohepatitis (NASH); H54.61 Unqualified visual loss, right eye, normal vision left eye; D64.9 Anemia, unspecified; I11.0 Hypertensive heart disease with heart failure; I50.9 Heart failure, unspecified; Z79.82 Long term (current) use of aspirin; Z79.84 Long term (current) use of oral hypoglycemic drugs; Z90.710 Acquired absence of both cervix and uterus; Z79.899 Other long term (current) drug therapy; Z20.822 Contact with and (suspected) exposure to COVID-19; Z23 Encounter for immunization
CPT/HCPCS: 36415; 70450; 71045; 74176; 76705; 80048; 80053; 80076; 80202; 80307; 80320; 81003; 82140; 82805; 82947; 83735; 83880; 84100; 84145; 84484; 85025; 85610; 87040; 87077; 87186; 87205; 90471; 90732; 93005; 94660; 96361; 96365; 97116; 97161; 99291; 99292; J0692; J0696; J1650; J2270; J2405; J2765; J3370; J3475; J7030; J7040; J7050; U0003